=== PATIENT | male | born 1960 | race Caucasian/White ===

== ENCOUNTER 2020-02-15 19:53 | Observation (INO) ==
[2020-02-15] MEDS ORDERED: *HR* Heparin 5,000 UNIT/ML VIAL IVP PRN ×2 (20:10)
[2020-02-15] MEDS ORDERED: Heparin 25,000UNIT/250ML 1/2NS 25,000 UNIT/250 ML IV.SOLN IVC SCH (20:15)
[2020-02-15 20:41] LABS: Heparin anti-factor XA UFH 0.12 IU/mL (0.30-0.70); INR 1.2; Prothrombin Time 13.3 Seconds (9.4-12.1)
[2020-02-15] MEDS ORDERED: Naloxone 0.4 MG/ML INJ IVP PRN ×3 (21:46→22:27)
[2020-02-15] MEDS ORDERED: *HR* Promethazine 25 MG/ML VIAL IM PRN (22:27)
[2020-02-15] MEDS: Ondansetron 4 MG/2 ML VIAL IVP PRN (22:46)
[2020-02-15 22:55] LABS: Basophils % 0.3 %; Eosinophils # 0.1 K/mcL (0.0-0.6); Hematocrit 50.1 % (37.5-50.1); Hemoglobin 15.7 g/dL (12.9-16.9); Immature Granulocytes % 0.3 % (0-4); Lymphocytes # 3.1 K/mcL (0.6-4.6); Lymphocytes % 27.1 %; Mean Corpuscular HGB Conc 31.3 g/dL (31.6-35.5); Mean Corpuscular Hemoglobin 27.7 pg (28.0-33.3); Mean Corpuscular Volume 88.4 fL (83.0-100.0); Mean Platelet Volume 9.7 fL (9.4-12.4); Monocytes # 0.7 K/mcL (0.0-1.3); Monocytes % 6.2 %; Neutrophils # 7.5 K/mcL (1.6-8.9); Platelet Count 211 K/mcL (140-400); Red Blood Count 5.67 M/mcL (4.19-5.50); Red Cell Distribution Width 14.4 % (11.5-14.5); Segmented Neutrophils % 65.1 %; White Blood Count 11.5 K/mcL (4.3-11.1)
[2020-02-15 23:16] LABS: Alanine Aminotransferase 17 Units/L (7-52); Albumin 4.3 g/dL (3.5-5.7); Albumin/Globulin Ratio 1.3 (1.1-2.2); Alkaline Phosphatase 83 Units/L (34-104); Aspartate Amino Transferase 18 Units/L (13-39); BUN/Creatinine Ratio 13 (6-26); Bilirubin,Total 1.8 mg/dL (0.3-1.0); Blood Urea Nitrogen 14 mg/dL (6-20); Calcium 9.2 mg/dL (8.6-10.3); Carbon Dioxide 21 mEq/L (23-29); Chloride 109 mEq/L (98-107); Chol/HDL Ratio 4.6 (0-4.9); Cholesterol 156 mg/dL (< 200); Globulin 3.4 g/dL (2.4-3.5); Glucose 125 mg/dL (70-105); HDL Cholesterol 34 mg/dL (40-59); LDL Cholesterol,Calculated 83 mg/dL (< 100); Magnesium 2.2 mg/dL (1.6-2.6); Osmolality,Calculated 294 (280-300); Phosphorous 2.8 mg/dL (2.7-4.5); Potassium 3.9 mEq/L (3.5-5.1); Sodium 141 mEq/L (136-145); Total Protein 7.7 g/dL (6.4-8.9); Triglycerides 194 mg/dL (< 150); eGFR For African Americans > 60 (> 60); eGFR For Non-African Americans > 60 (> 60)
[2020-02-16] MEDS ORDERED: Perflutren Lipid Microsphere 1.3 ML in 0.9 % Sodium Chloride 8.7 ML IVP PRN (02:11)
[2020-02-16 05:05] LABS: Hematocrit 46.8 % (37.5-50.1); Hemoglobin 14.9 g/dL (12.9-16.9); Mean Corpuscular HGB Conc 31.8 g/dL (31.6-35.5); Mean Corpuscular Hemoglobin 28.2 pg (28.0-33.3); Mean Corpuscular Volume 88.5 fL (83.0-100.0); Mean Platelet Volume 9.4 fL (9.4-12.4); Platelet Count 183 K/mcL (140-400); Red Blood Count 5.29 M/mcL (4.19-5.50); Red Cell Distribution Width 14.4 % (11.5-14.5); White Blood Count 10.6 K/mcL (4.3-11.1)
[2020-02-16 05:50] LABS: BUN/Creatinine Ratio 15 (6-26); Blood Urea Nitrogen 16 mg/dL (6-20); Calcium 9.1 mg/dL (8.6-10.3); Carbon Dioxide 23 mEq/L (23-29); Chloride 110 mEq/L (98-107); Glucose 123 mg/dL (70-105); Osmolality,Calculated 299 (280-300); Potassium 3.8 mEq/L (3.5-5.1); Sodium 143 mEq/L (136-145); eGFR For African Americans > 60 (> 60); eGFR For Non-African Americans > 60 (> 60)
[2020-02-16] MEDS ORDERED: Pantoprazole 40 MG VIAL IVP SCH (06:00)
[2020-02-16] MEDS ORDERED: Albuterol 2.5 MG/3 ML NEBULIZER IH PRN (07:55)
[2020-02-16] MEDS ORDERED: diazePAM 10 MG TABLET PO SCH (08:00)
[2020-02-16] MEDS: Gabapentin 300 MG CAPSULE PO SCH ×3 (08:35→19:50)
[2020-02-16] MEDS: Ondansetron 4 MG/2 ML VIAL IVP PRN (09:02)
[2020-02-16 09:51] LABS: Adenovirus Not Detected (Not Detect); Bordetella Pertussis Not Detected (Not Detect); Chlamydophila pneumoniae Not Detected (Not Detect); Coronavirus 229E Not Detected (Not Detect); Coronavirus HKU1 Not Detected (Not Detect); Coronavirus NL63 Not Detected (Not Detect); Coronavirus OC43 Not Detected (Not Detect); Human Metapneumovirus Not Detected (Not Detect); Human Rhinovirus/Enterovirus Not Detected (Not Detect); Influenza A Subtype 2009 H1 Not Detected (Not Detect); Influenza B Not Detected (Not Detect); Mycoplasma pneumoniae Not Detected (Not Detect); Parainfluenza Virus 1 Not Detected (Not Detect); Parainfluenza Virus 2 Not Detected (Not Detect); Parainfluenza Virus 3 Not Detected (Not Detect); Parainfluenza Virus 4 Not Detected (Not Detect); Respiratory Syncytial Virus Not Detected (Not Detect); SARS-CoV-2 Not Detected (Not Detect)
[2020-02-16] MEDS ORDERED: *HR* Propofol 200 MG/20 ML VIAL IVP ONE (10:31)
[2020-02-16] MEDS ORDERED: *HR* FentaNYL (PF) 100 MCG/2 ML VIAL ONE (10:31)
[2020-02-16] MEDS ORDERED: *HR* Succinylcholine 200 MG/10 ML VIAL IVP ONE (10:32)
[2020-02-16] MEDS ORDERED: Ondansetron 4 MG/2 ML VIAL ONE (10:32)
[2020-02-16] MEDS ORDERED: Lidocaine -MPF 2% 2 ML VIAL ONE (10:32)
[2020-02-16] MEDS ORDERED: Dexamethasone 4 MG/ML VIAL ONE (10:32)
[2020-02-16] MEDS ORDERED: Lidocaine -MPF 4% 5 ML AMPUL ONE (10:34)
[2020-02-16] MEDS ORDERED: *HR* PHENYLEPHRINE 1,000 MCG/10 ML SYRINGE IVP ONE (11:39)
[2020-02-16] MEDS ORDERED: Ipratropium/Albuterol Neb 3 ML IH ONE (12:27)
[2020-02-16] MEDS ORDERED: Acetaminophen 325 MG TABLET PO PRN (14:24)
[2020-02-16] MEDS: *HR* Heparin 5,000 UNIT/ML VIAL SQ SCH (17:37)
[2020-02-17] MEDS: *HR* Heparin 5,000 UNIT/ML VIAL SQ SCH (05:24)
[2020-02-17 05:45] LABS: Basophils % 0.1 %; Hematocrit 46.4 % (37.5-50.1); Hemoglobin 14.4 g/dL (12.9-16.9); Immature Granulocytes % 0.4 % (0-4); Lymphocytes # 1.2 K/mcL (0.6-4.6); Lymphocytes % 9.5 %; Mean Corpuscular Hemoglobin 27.6 pg (28.0-33.3); Mean Corpuscular Volume 88.9 fL (83.0-100.0); Mean Platelet Volume 9.6 fL (9.4-12.4); Monocytes # 0.4 K/mcL (0.0-1.3); Monocytes % 3.5 %; Neutrophils # 10.4 K/mcL (1.6-8.9); Platelet Count 206 K/mcL (140-400); Red Blood Count 5.22 M/mcL (4.19-5.50); Red Cell Distribution Width 13.9 % (11.5-14.5); Segmented Neutrophils % 86.5 %; White Blood Count 12.1 K/mcL (4.3-11.1)
[2020-02-17 06:04] LABS: BUN/Creatinine Ratio 15 (6-26); Blood Urea Nitrogen 14 mg/dL (6-20); Carbon Dioxide 23 mEq/L (23-29); Chloride 109 mEq/L (98-107); Glucose 145 mg/dL (70-105); Magnesium 2.1 mg/dL (1.6-2.6); Osmolality,Calculated 291 (280-300); Phosphorous 1.9 mg/dL (2.7-4.5); Potassium 4.2 mEq/L (3.5-5.1); Sodium 139 mEq/L (136-145); eGFR For African Americans > 60 (> 60); eGFR For Non-African Americans > 60 (> 60)
[2020-02-17 07:09] VITALS: BP 105/70
[2020-02-17] MEDS ORDERED: Magnesium Sulfate 1 GM/102 ML PIGGYBACK IVPB ONE (07:17)
[2020-02-17] MEDS: Gabapentin 300 MG CAPSULE PO SCH (08:29)
== END 2020-02-17 09:35 | disposition home or self-care (01) ==
LOC: EMEROOARM 19:53 → 2ANU 19:53 → SUATTDRO 20:43 → 2ANU 21:10
PROVIDERS: ADMIT Internal Medicine; ATTEND Internal Medicine
PROC: ENDOEFB (2020-02-16 10:30)

== ENCOUNTER 2020-03-21 20:50 | Observation (INO) ==
[2020-03-21 21:19] LABS: Basophils % 0.2 %; Eosinophils # 0.3 K/mcL (0.0-0.6); Eosinophils % 1.9 %; Hematocrit 48.7 % (37.5-50.1); Hemoglobin 15.1 g/dL (12.9-16.9); Immature Granulocytes % 0.5 % (0-4); Lymphocytes # 3.5 K/mcL (0.6-4.6); Mean Corpuscular Hemoglobin 27.7 pg (28.0-33.3); Mean Corpuscular Volume 89.2 fL (83.0-100.0); Mean Platelet Volume 9.1 fL (9.4-12.4); Monocytes # 0.9 K/mcL (0.0-1.3); Monocytes % 6.6 %; Neutrophils # 8.3 K/mcL (1.6-8.9); Platelet Count 248 K/mcL (140-400); Red Blood Count 5.46 M/mcL (4.19-5.50); Red Cell Distribution Width 13.9 % (11.5-14.5); Segmented Neutrophils % 63.8 %; White Blood Count 12.9 K/mcL (4.3-11.1)
[2020-03-21 21:43] LABS: BUN/Creatinine Ratio 9 (6-26); Blood Urea Nitrogen 10 mg/dL (6-20); Calcium 9.4 mg/dL (8.6-10.3); Carbon Dioxide 28 mEq/L (23-29); Chloride 107 mEq/L (98-107); Glucose 90 mg/dL (70-105); Osmolality,Calculated 295 (280-300); Potassium 4.1 mEq/L (3.5-5.1); Sodium 143 mEq/L (136-145); eGFR For African Americans > 60 (> 60); eGFR For Non-African Americans > 60 (> 60)
[2020-03-21 21:44] LABS: Troponin I < 0.03 ng/mL (< 0.04)
[2020-03-21] MEDS ORDERED: Morphine Sulfate 2 MG/ML SYRINGE IVP ONE (22:36)
[2020-03-21] MEDS ORDERED: 0.9 % Sodium Chloride 1,000 ML IVC SCH (23:45)
[2020-03-22] MEDS ORDERED: Ondansetron 4 MG/2 ML VIAL IVP PRN
[2020-03-22] MEDS: Morphine Sulfate 2 MG/ML SYRINGE IVP PRN ×3 (05:53→10:24)
[2020-03-22] MEDS ORDERED: *HR* Propofol 200 MG/20 ML VIAL IVP ONE (08:22)
[2020-03-22] MEDS ORDERED: *HR* Midazolam HCl 2 MG/2 ML VIAL ONE (08:22)
[2020-03-22] MEDS ORDERED: Dexamethasone 4 MG/ML VIAL ONE (08:25)
[2020-03-22] MEDS ORDERED: *HR* Succinylcholine 200 MG/10 ML VIAL IVP ONE (08:25)
[2020-03-22] MEDS ORDERED: Ondansetron 4 MG/2 ML VIAL ONE (08:25)
[2020-03-22] MEDS ORDERED: Lidocaine -MPF 4% 5 ML AMPUL ONE (08:25)
[2020-03-22] MEDS ORDERED: Lidocaine -MPF 2% 2 ML VIAL ONE (08:25)
[2020-03-22 12:08] VITALS: BP 116/78
== END 2020-03-22 13:11 | disposition home or self-care (01) ==
LOC: EMEROOARM 20:50 → 3ANU 20:50
PROVIDERS: ADMIT Surgery; ATTEND Surgery
PROC: ENDOEBX (2020-03-22 09:00)